=== PATIENT | female | born 1985 | race Hispanic/Latino ===

== ENCOUNTER 2018-06-01 21:11 | Emergency (ER) | payer MEDICAID, OTHER ==
[2018-06-01 21:54] LABS: APPEARANCE,URINE Clear (CLEAR); BILIRUBIN,URINE Negative (NEGATIVE); COLOR,URINE Yellow (YELLOW); GLUCOSE, URINE (UA) Negative (NEGATIVE); KETONES,URINE Negative (NEGATIVE); LEUKOCYTE ESTERASE ,URINE Trace (NEGATIVE); NITRATE,URINE Negative (NEGATIVE); OCCULT BLOOD,URINE Negative (NEGATIVE); PROTEIN,URINE Negative (NEGATIVE)
[2018-06-01 22:10] LABS: BACTERIA,URINE Few /HPF (None Seen); RBC,URINE 0-1 /HPF (0-1); SQUAMOUS EPITHELIAL CELL,UR Few /HPF (0-2)
[2018-06-01] MEDS ORDERED: HYDROCODONE/ACETAMINOPHEN 10/325 MG TAB ONE (22:14)
== END 2018-06-01 23:38 | disposition home or self-care (01) ==
LOC: EDH 21:11
DX: L04.9 Acute lymphadenitis, unspecified (principal); R51 Headache; Z98.51 Tubal ligation status
CPT/HCPCS: 70450; 81001; 81025

== ENCOUNTER 2023-10-10 11:31 | Inpatient (IN) | payer OTHER ==
[~2023-10-10] VITALS: Ht 154.9 cm; Wt 100.3 kg
[2023-10-10] MEDS: ONDANSETRON 4MG INJ IVP STA (12:04)
[2023-10-10 12:07] LABS: BASOPHILS # (AUTO) 0.07 K/uL (0.00-0.20); BASOPHILS % (AUTO) 0.7 % (0.0-5.0); EOSINOPHILS # (AUTO) 0.19 K/uL (0.00-0.70); EOSINOPHILS % (AUTO) 1.8 % (0.0-8.0); HEMATOCRIT 42.7 % (36-48); IMMATURE GRANULOCYTE ABSOLUTE 0.07 K/uL (0-1); LYMPHOCYTES # (AUTO) 4.3 K/uL (1.0-4.8); LYMPHOCYTES % (AUTO) 41.2 % (21.0-51.0); MEAN CORPUSCULAR HEMOGLOBIN 29.6 pg (27.0-33.0); MEAN CORPUSCULAR HGB CONC 33.7 g/dL (32.0-36.0); MEAN CORPUSCULAR VOLUME 87.9 fL (79-99); MONOCYTES # (AUTO) 0.9 K/uL (0.1-1.0); MONOCYTES % (AUTO) 8.1 % (3.0-13.0); NEUTROPHILS % (AUTO) 47.5 % (40.0-77.0); PLATELET COUNT (AUTO) 328 K/uL (130-400); RED BLOOD CELL COUNT(AUTO) 4.86 MIL/uL (4.00-5.50); RED CELL DISTRIBUTION WIDTH 13.1 % (11.0-15.5); WHITE BLOOD COUNT (AUTO) 10.5 K/uL (4.8-10.8)
[2023-10-10 12:21] LABS: CREATININE 0.7 mg/dL (0.5-1.0); POTASSIUM 3.9 mmol/L (3.5-5.1)
[2023-10-10 12:26] LABS: ALBUMIN 3.5 g/dL (3.5-5.0); BILIRUBIN,TOTAL 0.3 mg/dL (0.2-1.0)
[2023-10-10 12:34] LABS: APPEARANCE,URINE CLEAR (CLEAR); BILIRUBIN,URINE NEGATIVE (NEGATIVE); COLOR,URINE LIGHT-YELLOW (YELLOW); GLUCOSE, URINE (UA) NEGATIVE (NEGATIVE); KETONES,URINE NEGATIVE (NEGATIVE); LEUKOCYTE ESTERASE ,URINE NEGATIVE Leu/uL (NEGATIVE); NITRATE,URINE NEGATIVE (NEGATIVE); PH,URINE 6.5 (5.0-8.0); PROTEIN,URINE NEGATIVE (NEGATIVE); UROBILINOGEN,URINE 0.2 mg/dL (0.2-1.0)
[2023-10-10 12:40] LABS: ADD UA MICROSCOPIC YES
[2023-10-10 12:42] LABS: AMPHET/METH SCREEN,URINE NEGATIVE (NEGATIVE); BARBITURATE SCREEN, URINE NEGATIVE (NEGATIVE); BENZODIAZEPINES SCREEN,URINE NEGATIVE (NEGATIVE); CANNABINOID SCREEN,URINE POSITIVE (NEGATIVE); COCAINE SCREEN,URINE NEGATIVE (NEGATIVE); HCG,QUALITATIVE URINE NEGATIVE (NEGATIVE); OPIATE SCREEN,URINE NEGATIVE (NEGATIVE); PHENCYCLIDINE SCREEN,URINE NEGATIVE (NEGATIVE)
[2023-10-10 12:43] LABS: MUCUS,URINE RARE LPF (None Seen); SQUAMOUS EPITHELIAL CELL,UR FEW /HPF (0-2); WBC,URINE 0-1 /HPF (0-1)
[2023-10-10] MEDS: KETOROLAC 15MG/ML VIAL (15MG/ML) IM STA (13:28)
[2023-10-10] MEDS: HEPARIN 5,000 UNIT VIAL ONE (14:52)
[2023-10-10] MEDS: MORPHINE 4 MG SYG IVP ONE (14:52)
[2023-10-10] MEDS: ASPIRIN 325MG TAB PO ONE (14:54)
[2023-10-10] MEDS: ONDANSETRON 4MG INJ IVP ONE ×2 (14:54→23:41)
[2023-10-10] MEDS: HEPARIN 25,000 UNITS/250ML D5W 250 ML IV PRN (14:58)
[2023-10-10] MEDS ORDERED: NITROGLYCERIN 0.4 MG SL TAB SL PRN (15:30)
[2023-10-10 16:04] LABS: MAGNESIUM 1.8 mg/dL (1.80-2.40); THYROID STIMULATING HORMONE 0.6 uIU/mL (0.36-3.74)
[2023-10-10] MEDS: FAMOTIDINE 20MG VIAL IV SCH (16:23)
[2023-10-10] MEDS: ATORVASTATIN 40 MG TABLET PO SCH (16:23)
[2023-10-10] MEDS: KCL 20 MEQ ERTAB PO ONE (16:24)
[2023-10-10 16:53] LABS: SARS-CoV-2, RNA, NAAT NEGATIVE SARS CoV-2 (NEGATIVE)
[2023-10-10 16:57] LABS: INR <= 0.93 (0.85-1.15)
[2023-10-10 16:57] LABS: INFLUENZA TYPE A Negative For Type A (NEGATIVE); INFLUENZA TYPE B Negative For Type B (NEGATIVE)
[2023-10-10 16:59] LABS: PARTIAL THROMBOPLASTIN TIME 59.2 SEC (26.3-35.5)
[2023-10-10] MEDS ORDERED: LABETALOL 20MG SYG IV PRN (17:00)
[2023-10-10] MEDS: NITROGLYCERIN PATCH 0.2 MG/HR TD SCH (17:01)
[2023-10-10] MEDS: CLOPIDOGREL 300MG TAB PO ONE (17:01)
[2023-10-10] MEDS: MAGNESIUM 2GM PREMIX 50ML 50 ML IV SCH (17:01)
[2023-10-10] MEDS: ACETAMINOPHEN 500 MG TABLET PO PRN (17:08)
[2023-10-10 17:26] LABS: CREATINE KINASE, TOTAL 540 U/L (21-232)
[2023-10-10] MEDS: DILTIAZEM 60MG TAB PO SCH (18:37)
[2023-10-10] MEDS: MORPHINE 2 MG SYG IVP PRN (18:41)
[2023-10-10 20:04] VITALS: BP 138/85; PULSE 63; RESP 20
[2023-10-10] MEDS ORDERED: METOPROLOL TARTRATE 25 MG TAB PO SCH (21:00)
[2023-10-10 23:30] VITALS: BP 149/91; PULSE 71; RESP 20
[2023-10-11] VITALS (15 sets, daily range): BP systolic 125–152; BP diastolic 50–94; PULSE 71–91; RESP 16–22; O2SAT 95–99
[2023-10-11] MEDS: NITROGLYCERIN PATCH 0.2 MG/HR TD SCH
[2023-10-11] MEDS: MORPHINE 2 MG SYG IVP ONE (00:26)
[2023-10-11] MEDS: NITROGLYCERIN 1GM OINT 1 INCH/1GM TD ONE (00:26)
[2023-10-11 04:22] LABS: BASOPHILS # (AUTO) 0.04 K/uL (0.00-0.20); BASOPHILS % (AUTO) 0.3 % (0.0-5.0); EOSINOPHILS # (AUTO) 0.01 K/uL (0.00-0.70); EOSINOPHILS % (AUTO) 0.1 % (0.0-8.0); HEMATOCRIT 42.7 % (36-48); IMMATURE GRANULOCYTE ABSOLUTE 0.07 K/uL (0-1); LYMPHOCYTES # (AUTO) 2.9 K/uL (1.0-4.8); LYMPHOCYTES % (AUTO) 18.9 % (21.0-51.0); MEAN CORPUSCULAR HEMOGLOBIN 29.7 pg (27.0-33.0); MEAN CORPUSCULAR HGB CONC 32.8 g/dL (32.0-36.0); MEAN CORPUSCULAR VOLUME 90.7 fL (79-99); MONOCYTES # (AUTO) 1.2 K/uL (0.1-1.0); MONOCYTES % (AUTO) 8.1 % (3.0-13.0); NEUTROPHILS % (AUTO) 72.1 % (40.0-77.0); PLATELET COUNT (AUTO) 297 K/uL (130-400); RED BLOOD CELL COUNT(AUTO) 4.71 MIL/uL (4.00-5.50); RED CELL DISTRIBUTION WIDTH 13.1 % (11.0-15.5); WHITE BLOOD COUNT (AUTO) 15.2 K/uL (4.8-10.8)
[2023-10-11 04:35] LABS: ALBUMIN 3.3 g/dL (3.5-5.0); BILIRUBIN,TOTAL 0.6 mg/dL (0.2-1.0); CREATININE 0.9 mg/dL (0.5-1.0); MAGNESIUM 2.2 mg/dL (1.80-2.40); POTASSIUM 4.2 mmol/L (3.5-5.1); TOTAL PROTEIN, SERUM 7.2 g/dL (6.0-8.3)
[2023-10-11 04:38] LABS: INR <= 0.93 (0.85-1.15)
[2023-10-11 04:39] LABS: PARTIAL THROMBOPLASTIN TIME 62.4 SEC (26.3-35.5)
[2023-10-11] MEDS: CLOPIDOGREL 75MG TAB PO SCH (07:50)
[2023-10-11] MEDS: ASPIRIN 81MG CHEW TAB PO SCH (07:50)
[2023-10-11 10:18] LABS: INR 0.95 (0.85-1.15); PROTHROMBIN TIME 11.2 SEC (9.6-11.6)
[2023-10-11 10:20] LABS: PARTIAL THROMBOPLASTIN TIME 87.8 SEC (26.3-35.5)
[2023-10-11] MEDS ORDERED: LIDOCAINE HCL 400MG/20ML VIAL ONE ×2 (12:38→12:54)
[2023-10-11] MEDS ORDERED: IOHEXOL 350 MG/ML 100ML INFUS..BTL IV ONE (12:38)
[2023-10-11] MEDS ORDERED: NICARDIPINE 25MG INJ IV ONE (12:38)
[2023-10-11] MEDS ORDERED: HEPARIN 10,000 UNIT/10ML (1,000 UNIT/ML) VIAL ONE (12:38)
[2023-10-11] MEDS ORDERED: NITROGLYCERIN 50MG VIAL ONE (12:38)
[2023-10-11] MEDS ORDERED: FENTANYL CITRATE PF 50 MCG/1 ML 2ML VIAL ONE (13:05)
[2023-10-11] MEDS ORDERED: MIDAZOLAM HCL 1 MG/ML 2ML VIAL ONE (13:05)
[2023-10-11] MEDS ORDERED: IOHEXOL-350 50ML VIAL IV ONE (13:42)
[2023-10-11] MEDS: 0.9%NACL 1000ML 1,000 ML IV SCH (14:13)
[2023-10-11] MEDS: DILTIAZEM 120MG SR CAP PO SCH (14:56)
[2023-10-11] MEDS: ISOSORBIDE MONO 30MG SR TAB PO SCH (14:56)
[2023-10-12 03:48] LABS: HEMATOCRIT 38.2 % (36-48); MEAN CORPUSCULAR HEMOGLOBIN 29.5 pg (27.0-33.0); MEAN CORPUSCULAR HGB CONC 33.8 g/dL (32.0-36.0); MEAN CORPUSCULAR VOLUME 87.4 fL (79-99); RED BLOOD CELL COUNT(AUTO) 4.37 MIL/uL (4.00-5.50); RED CELL DISTRIBUTION WIDTH 13.2 % (11.0-15.5); WHITE BLOOD COUNT (AUTO) 10.5 K/uL (4.8-10.8)
[2023-10-12 04:00] VITALS: BP 144/93; PULSE 79; RESP 20
[2023-10-12 07:41] VITALS: O2SAT 97
[2023-10-12 08:19] VITALS: BP 150/98; PULSE 83; RESP 16
[2023-10-12 11:56] VITALS: BP 146/99; PULSE 89; RESP 16
[2023-10-12] MEDS ORDERED: NITR0.4T SL (16:14)
[2023-10-12 16:18] VITALS: BP 124/66; PULSE 67; RESP 16
== END 2023-10-12 16:20 | disposition home or self-care (01) | DRG 281 ==
LOC: EDH 11:31 → EDHIP 11:32 → UNDOADMIN 15:22 → EDHIP 15:22 → 2DH 18:56
PROVIDERS: ADMIT Internal Medicine; ATTEND Internal Medicine
PROC: 4A023N7 Measurement of Cardiac Sampling and Pressure, Left Heart, Percutaneous Approach (ICD-10-PCS; principal; 2023-10-11)
PROC: B2111ZZ Fluoroscopy of Multiple Coronary Arteries using Low Osmolar Contrast (ICD-10-PCS; 2023-10-11)
PROC: B31H1ZZ Fluoroscopy of Right Upper Extremity Arteries using Low Osmolar Contrast (ICD-10-PCS; 2023-10-11)
DX: I21.4 Non-ST elevation (NSTEMI) myocardial infarction (principal); Z68.41 Body mass index [BMI] 40.0-44.9, adult; I25.10 Atherosclerotic heart disease of native coronary artery without angina pectoris; N92.0 Excessive and frequent menstruation with regular cycle; Z20.822 Contact with and (suspected) exposure to COVID-19; F12.10 Cannabis abuse, uncomplicated; F41.9 Anxiety disorder, unspecified; E66.9 Obesity, unspecified; I10 Essential (primary) hypertension; Z86.73 Personal history of transient ischemic attack (TIA), and cerebral infarction without residual deficits; Z98.51 Tubal ligation status; Z82.49 Family history of ischemic heart disease and other diseases of the circulatory system
CPT/HCPCS: 36415; 71045; 76376; 76856; 80053; 80061; 80305; 81001; 81025; 82550; 82948; 83036; 83735; 84145; 84443; 84484; 85025; 85027; 85610; 85651; 85730; 86140; 86850; 86900; 86901; 87635; 87804; 93005; 93306; 93356; 93458; 96365; 96372; 96375; 99156; 99157; C1769; G0378; J1644; J1885; J2250; J2270; J2405; J3010; J3475; J3490; Q9967; A4649; C1894; Q9965

== ENCOUNTER 2024-02-16 22:39 | Inpatient (IN) | payer SELFPAY ==
[~2024-02-16] VITALS: Ht 154.9 cm; Wt 98.9 kg
[~2024-02-16 22:39] MED LIST: ACET-2079 PO; AMOX1TAB16 PO; ASPI-1005 PO; ATOR40TA71 PO; DILT120C12 PO
[2024-02-16 23:12] LABS: BASOPHILS # (AUTO) 0.03 K/uL (0.00-0.20); BASOPHILS % (AUTO) 0.3 % (0.0-5.0); EOSINOPHILS # (AUTO) 0.12 K/uL (0.00-0.70); EOSINOPHILS % (AUTO) 1.2 % (0.0-8.0); HEMATOCRIT 39.6 % (36-48); IMMATURE GRANULOCYTE ABSOLUTE 0.03 K/uL (0-1); LYMPHOCYTES # (AUTO) 1.7 K/uL (1.0-4.8); LYMPHOCYTES % (AUTO) 16.7 % (21.0-51.0); MEAN CORPUSCULAR HEMOGLOBIN 29.2 pg (27.0-33.0); MEAN CORPUSCULAR HGB CONC 33.1 g/dL (32.0-36.0); MEAN CORPUSCULAR VOLUME 88.2 fL (79-99); MONOCYTES # (AUTO) 0.7 K/uL (0.1-1.0); MONOCYTES % (AUTO) 6.5 % (3.0-13.0); NEUTROPHILS # (AUTO) 7.6 K/uL (1.8-7.7); PLATELET COUNT (AUTO) 295 K/uL (130-400); RED BLOOD CELL COUNT(AUTO) 4.49 MIL/uL (4.00-5.50); RED CELL DISTRIBUTION WIDTH 12.9 % (11.0-15.5); WHITE BLOOD COUNT (AUTO) 10.2 K/uL (4.8-10.8)
[2024-02-16] MEDS: PANTOPrazole 40 MG/VIAL IVP ONE (23:12)
[2024-02-16] MEDS: ondanSETRON 4MG INJ IVP ONE (23:12)
[2024-02-16] MEDS: 0.9%NACL 1000ML 1,000 ML IV ONE (23:12)
[2024-02-16 23:17] LABS: CREATININE 0.8 mg/dL (0.5-1.0); POTASSIUM 3.8 mmol/L (3.5-5.1)
[2024-02-16] MEDS: morPHINE 4 MG SYG IVP ONE (23:20)
[2024-02-16 23:22] LABS: ALBUMIN 3.4 g/dL (3.5-5.0); BILIRUBIN,DIRECT 0.2 mg/dL (0.0-0.3); BILIRUBIN,TOTAL 0.5 mg/dL (0.2-1.0); TOTAL PROTEIN, SERUM 7.7 g/dL (6.0-8.3)
[2024-02-16 23:56] LABS: APPEARANCE,URINE TURBID (CLEAR); BILIRUBIN,URINE NEGATIVE (NEGATIVE); COLOR,URINE COLORLESS (YELLOW); GLUCOSE, URINE (UA) NEGATIVE (NEGATIVE); KETONES,URINE 20 mg/dL (NEGATIVE); LEUKOCYTE ESTERASE ,URINE NEGATIVE Leu/uL (NEGATIVE); NITRATE,URINE NEGATIVE (NEGATIVE); OCCULT BLOOD,URINE SMALL (NEGATIVE); PH,URINE 7.5 (5.0-8.0); PROTEIN,URINE NEGATIVE (NEGATIVE); UROBILINOGEN,URINE 0.2 mg/dL (0.2-1.0)
[2024-02-16 23:57] LABS: ADD UA MICROSCOPIC YES
[2024-02-17 00:01] LABS: BACTERIA,URINE FEW /HPF (None Seen); MUCUS,URINE RARE LPF (None Seen); SQUAMOUS EPITHELIAL CELL,UR RARE /HPF (0-2)
[2024-02-17 00:04] LABS: AMPHET/METH SCREEN,URINE NEGATIVE (NEGATIVE); BARBITURATE SCREEN, URINE NEGATIVE (NEGATIVE); BENZODIAZEPINES SCREEN,URINE NEGATIVE (NEGATIVE); CANNABINOID SCREEN,URINE POSITIVE (NEGATIVE); COCAINE SCREEN,URINE NEGATIVE (NEGATIVE); OPIATE SCREEN,URINE POSITIVE (NEGATIVE); PHENCYCLIDINE SCREEN,URINE NEGATIVE (NEGATIVE)
[2024-02-17] MEDS: ketOROlac 30MG VIAL (30MG/ML) IVP ONE (00:31)
[2024-02-17] MEDS: acetaMINOPHEN 1,000 MG/100 ML VIAL IV SCH (00:40)
[2024-02-17] MEDS ORDERED: IOHEXOL 350 MG/ML 100ML INFUS..BTL IV ONE (00:56)
[2024-02-17] MEDS ORDERED: hydrALAZine 20MG/ML VIAL IV PRN (02:00)
[2024-02-17] MEDS ORDERED: TEMAZepam 15 MG CAPSULE PO PRN (02:00)
[2024-02-17] MEDS ORDERED: acetaMINOPHEN 650 MG SUPPOSITORY RC PRN (02:00)
[2024-02-17] MEDS: LACTATED RINGERS 1000ML 1,000 ML IV SCH (02:16)
[2024-02-17] MEDS: MAGNESIUM 2GM PREMIX 50ML 50 ML IV PRN (02:16)
[2024-02-17] MEDS ORDERED: PoTASSium chloRIDE 20MEQ ER 20 MEQ ERTAB PO PRN (02:30)
[2024-02-17] MEDS ORDERED: GLUCAGON 1MG KIT 1 MG ML IM PRN (02:30)
[2024-02-17] MEDS ORDERED: PoTASSium chloRIDE 20MEQ/100ML 100 ML IV PRN (02:30)
[2024-02-17] MEDS ORDERED: PoTASSium chl 10% ELIXIR 20MEQ 20 MEQ/15 ML UDCUP PO PRN (02:30)
[2024-02-17] MEDS ORDERED: DEXTROSE 50%-WATER 50 ML DISP.SYRIN IV PRN (02:30)
[2024-02-17] MEDS: INSULIN humuLIN R 100 UNIT/ML 3ML SQ SCH (07:30)
[2024-02-17] MEDS: morPHINE 4 MG SYG IVP ONE (08:25)
[2024-02-17] MEDS: ondanSETRON 4MG INJ IVP PRN (08:26)
[2024-02-17 12:00] VITALS: BP 124/63; PULSE 76; RESP 18; TEMP 98.4
[2024-02-17] MEDS ORDERED: NITROGLYCERIN 0.4 MG SL TAB SL ONE (12:35)
[2024-02-17 16:00] VITALS: BP 122/74; PULSE 81; RESP 18; TEMP 98.8
[2024-02-17 19:55] VITALS: BP 127/70; PULSE 87; RESP 18; TEMP 98.6
[2024-02-17 20:13] VITALS: O2SAT 98
[2024-02-17] MEDS: ketOROlac 30MG VIAL (30MG/ML) IVP PRN (20:13)
[2024-02-17 23:52] VITALS: BP 128/72; PULSE 79; RESP 18; TEMP 98.5
[2024-02-18] VITALS (7 sets, daily range): BP systolic 111–153; BP diastolic 59–99; PULSE 65–86; RESP 16–19; TEMP 98.1–98.5; O2SAT 97
[2024-02-18 06:52] LABS: BASOPHILS # (AUTO) 0.03 K/uL (0.00-0.20); BASOPHILS % (AUTO) 0.4 % (0.0-5.0); EOSINOPHILS # (AUTO) 0.08 K/uL (0.00-0.70); HEMATOCRIT 37.5 % (36-48); IMMATURE GRANULOCYTE ABSOLUTE 0.03 K/uL (0-1); LYMPHOCYTES % (AUTO) 35.8 % (21.0-51.0); MEAN CORPUSCULAR HGB CONC 32.5 g/dL (32.0-36.0); MEAN CORPUSCULAR VOLUME 89.3 fL (79-99); MONOCYTES # (AUTO) 0.8 K/uL (0.1-1.0); MONOCYTES % (AUTO) 9.2 % (3.0-13.0); NEUTROPHILS # (AUTO) 4.4 K/uL (1.8-7.7); NEUTROPHILS % (AUTO) 53.2 % (40.0-77.0); PLATELET COUNT (AUTO) 301 K/uL (130-400); WHITE BLOOD COUNT (AUTO) 8.3 K/uL (4.8-10.8)
[2024-02-18 07:05] LABS: CREATININE 0.8 mg/dL (0.5-1.0); PHOSPHORUS 3.3 mg/dL (2.5-4.9); POTASSIUM 3.8 mmol/L (3.5-5.1)
[2024-02-18] MEDS ORDERED: morPHINE 4 MG SYG IVP PRN (10:00)
[2024-02-18 10:16] LABS: ALBUMIN 2.9 g/dL (3.5-5.0); BILIRUBIN,DIRECT 0.1 mg/dL (0.0-0.3); BILIRUBIN,TOTAL 0.3 mg/dL (0.2-1.0); TOTAL PROTEIN, SERUM 6.9 g/dL (6.0-8.3)
[2024-02-18] MEDS: acetaMINOPHEN 325 MG TAB PO PRN (23:25)
[2024-02-19 04:38] VITALS: BP 124/56; PULSE 63; RESP 15; TEMP 97.9
[2024-02-19 08:00] VITALS: BP 101/63; PULSE 67; RESP 18; TEMP 97.6
== END 2024-02-19 10:45 | disposition home or self-care (01) | DRG 948 ==
LOC: EDH 22:39 → EDHIP 02-17 01:43 → WSH 02-17 13:55
PROVIDERS: ADMIT Internal Medicine; ATTEND Internal Medicine
DX: G89.18 Other acute postprocedural pain (principal); Z68.41 Body mass index [BMI] 40.0-44.9, adult; E66.01 Morbid (severe) obesity due to excess calories; E78.5 Hyperlipidemia, unspecified; E83.42 Hypomagnesemia; K83.8 Other specified diseases of biliary tract; I10 Essential (primary) hypertension; I25.10 Atherosclerotic heart disease of native coronary artery without angina pectoris; N28.1 Cyst of kidney, acquired; Z82.49 Family history of ischemic heart disease and other diseases of the circulatory system; Z90.49 Acquired absence of other specified parts of digestive tract
CPT/HCPCS: 36415; 71045; 74177; 76705; 80048; 80076; 80305; 81001; 82150; 82550; 82948; 83690; 83735; 84100; 84484; 84703; 85025; 93005; 96375; G0378; J1885; J2270; J2405; J2470; J3475; J7030; J7120; Q9967